=== PATIENT | male | born 1970 | race Caucasian/White ===

== ENCOUNTER 2016-07-02 16:16 | Outpatient (CLI) | payer OTHER, SELFPAY ==
[2016-07-02 16:30] LABS: #Basophils 0.1 thou/uL (0.0-0.2); #Eosinphils 0.3 thou/uL (0.0-0.7); #Lymphocytes 1.1 thou/uL (1.20-3.40); #Monocytes 0.3 thou/uL (0.11-0.59); #Neutrophils 6.6 thou/uL (1.40-6.50); %Basophils 0.8 % (0.0-1.0); %Eosinophils 3.6 % (0.0-10.0); Hematocrit 45.9 % (42.0-52.0); Mean Platelet Volume 5.5 fL (7.4-10.4); Red Blood Cell (RBC) Count 4.95 mill/uL (4.70-6.10); White Blood Cell (WBC) Count 8.4 thou/uL (4.8-10.8)
[2016-07-02 16:41] LABS: ALT (SGPT) 19 U/L (0-55); AST (SGOT) 19 U/L (5-34); Alkaline Phosphatase 91 U/L (40-150); Anion Gap 13 mmol/L (10-20); BUN (Urea Nitrogen) 24 mg/dL (8.9-20.6); Bilirubin, Total 0.2 mg/dL (0.2-1.2); Calc. Creatinine Clearance 0 mL/min (70-130); Calcium 8.8 mg/dL (7.8-10.44); Carbon Dioxide 25 mmol/L (22-29); Chloride 109 mmol/L (98-107); Estimated GFR-MDRD Greater than 90; Globulin 3.1 g/dL (2.4-3.5); Protein, Total 7.4 g/dL (6.0-8.3)
== END 2016-07-02 16:17 | disposition home or self-care (01) ==
LOC: HPCALD 16:16
PROVIDERS: ATTEND Family Medicine
DX: G40.309 Generalized idiopathic epilepsy and epileptic syndromes, not intractable, without status epilepticus (principal)
CPT/HCPCS: 36415; 80053; 80185; 82746; 85025

== ENCOUNTER 2017-01-07 15:36 | Outpatient (CLI) | payer OTHER | END 2017-01-07 15:37 | disposition home or self-care (01) | LOC: HPCALD 15:36 | PROVIDERS: ATTEND Family Medicine | DX: G40.309 Generalized idiopathic epilepsy and epileptic syndromes, not intractable, without status epilepticus (principal) | CPT/HCPCS: 36415; 80185 ==